=== PATIENT | male | born 1965 | race Caucasian/White ===

== ENCOUNTER 2018-07-10 17:55 | Outpatient (CLI) | payer OTHER | END 2018-07-10 18:08 | disposition home or self-care (01) | LOC: LAB 17:55 | DX: R97.20 Elevated prostate specific antigen [PSA] (principal) ==

== ENCOUNTER 2018-08-01 07:26 | Outpatient (CLI) | payer OTHER | END 2018-08-01 07:36 | disposition home or self-care (01) | LOC: SONOGRAMA 07:26 | DX: R97.20 Elevated prostate specific antigen [PSA] (principal) ==

== ENCOUNTER 2021-03-31 16:21 | Outpatient (CLI) | payer OTHER | END 2021-03-31 16:26 | disposition home or self-care (01) | LOC: LAB 16:21 | PROVIDERS: ATTEND Urology | DX: R97.20 Elevated prostate specific antigen [PSA] (principal) ==

== ENCOUNTER 2021-05-12 07:09 | Outpatient (CLI) | payer OTHER | END 2021-05-12 07:17 | disposition home or self-care (01) | LOC: SONOGRAMA 07:09 | PROVIDERS: ATTEND Urology | DX: C61 Malignant neoplasm of prostate (principal); D29.1 Benign neoplasm of prostate; R97.20 Elevated prostate specific antigen [PSA] ==

== ENCOUNTER 2021-05-27 10:27 | Outpatient (CLI) | payer OTHER | END 2021-05-27 10:39 | disposition home or self-care (01) | LOC: RAD 10:27 | PROVIDERS: ATTEND Urology | DX: K57.90 Diverticulosis of intestine, part unspecified, without perforation or abscess without bleeding (principal); Q61.02 Congenital multiple renal cysts; M25.512 Pain in left shoulder | CPT/HCPCS: 73030; 74176; Q9965 ==

== ENCOUNTER → 2021-06-21 07:58 | Outpatient (CLI) | payer OTHER | END | disposition home or self-care (01) | LOC: NUCLEAR 06-03 09:25 | PROVIDERS: ATTEND Urology | DX: N40.0 Benign prostatic hyperplasia without lower urinary tract symptoms (principal); R97.20 Elevated prostate specific antigen [PSA]; N28.1 Cyst of kidney, acquired; F52.21 Male erectile disorder; C61 Malignant neoplasm of prostate | CPT/HCPCS: 78306; A9503 ==

== ENCOUNTER 2021-10-26 07:00 | Inpatient (IN) | payer OTHER ==
[~2021-10-26] VITALS: Ht 170.2 cm; Wt 73.5 kg
[2021-10-26] MEDS ORDERED: ATORVASTATIN CA40 MG PO (09:08)
[2021-10-26] MEDS ORDERED: TAMS0.4C PO (09:09)
[2021-10-26] MEDS ORDERED: ZYLOPRIM100 M1 PO (09:09)
[2021-10-26] MEDS ORDERED: ADULT LOW DOSE81 M1 PO (09:09)
[2021-10-26] MEDS ORDERED: CALCIU PO (09:10)
[2021-10-26] MEDS ORDERED: ALLERGY PO (09:11)
[2021-10-29] MEDS ORDERED: ALLERGY RELIEF10 MG (07:55)
[2021-10-29] MEDS ORDERED: ZANAFLEX2 MG (07:55)
[2021-10-29] MEDS ORDERED: FLONASE16 GM (07:55)
[2021-10-29] MEDS ORDERED: GABAPENTIN100 M2 (07:55)
[2021-10-29] MEDS ORDERED: BENADRYL ALLERG25 MG (07:56)
[2021-10-29] MEDS ORDERED: CALCIUM500 M2 (07:56)
== END 2021-10-31 14:37 | disposition home or self-care (01) | DRG 707 ==
LOC: O/R 10-29 06:00 → SURH 10-29 07:00
PROVIDERS: ADMIT Urology; ATTEND Urology
PROC: 07BC0ZZ Excision of Pelvis Lymphatic, Open Approach (ICD-10-PCS; 2021-10-29)
PROC: 0VT00ZZ Resection of Prostate, Open Approach (ICD-10-PCS; principal; 2021-10-29 07:00)
PROC: 30233N1 Transfusion of Nonautologous Red Blood Cells into Peripheral Vein, Percutaneous Approach (ICD-10-PCS; 2021-10-30)
DX: C61 Malignant neoplasm of prostate (principal); N18.6 End stage renal disease; D62 Acute posthemorrhagic anemia; R59.0 Localized enlarged lymph nodes